=== PATIENT | male | born 1950 | race Caucasian/White ===

== ENCOUNTER 2019-04-05 07:37 | Outpatient (CLI) | payer MEDICARE ==
--- NOTE | 2019-04-05 08:02 | ULT ---
Abdominal aortic sonogram with duplex evaluation HISTORY: Aneurysm screening. FINDINGS: Abdominal aorta measures up to 2.2 cm greatest AP diameter. Normal appearance with good col or and spectral Doppler flow. No adjacent fluid collections. IMPRESSION: No sonographic evidence of abdominal aortic aneurysm.
== END 2019-04-05 07:38 | disposition home or self-care (01) ==
LOC: SCSULT 07:37
PROVIDERS: ATTEND Family Medicine
DX: Z13.6 Encounter for screening for cardiovascular disorders (principal)
CPT/HCPCS: 76706